=== PATIENT | male | born 1975 | race Caucasian/White ===

== ENCOUNTER 2021-04-28 14:16 | Emergency (ER) | payer OTHER ==
[2021-04-28] MEDS ORDERED: Lidocaine 1% 30 ML SDV INJECT ONE (15:32)
--- NOTE | 2021-04-28 15:46 | EDM.PDOC ---
ED HPI GENERAL MEDICAL PROBLEM - General Stated Complaint: L MIDDLE FINGER INJURY Time Seen by Provider: 04/28/21 15:35 Source of Information: Reports: Patient History Limitations: Reports: No Limitations - History of Present Illness INITIAL COMMENTS - FREE TEXT/NARRATIVE: Patient comes emergency department today with complaints of an injury to his left index finger while at work using a notch grinder. This patient whose tetanus immunization was 2 to 3 years ago was at work today using a wheel cutter that got away from him and cut his left pad of his index finger. This happened just prior to arrival. He denies any paresthesias. He denies any other injury. Denies any change in the functionality of his left hand or sensation. Left Middle Finger-Middle Pain Score (Numeric/FACES): 1 - Related Data Allergies Allergy/AdvReac Type Severity Reaction Status Date / Time No Known Allergies Allergy Verified 04/28/21 16:36 Home Meds: Home Meds . [No Known Home Meds] 04/28/21 [History] Review of Systems - Review of Systems Review Of Systems: Comprehensive ROS is negative, except as noted in HPI. ED EXAM, GENERAL - Physical Exam Exam: See Below Exam Limited By: No Limitations General Appearance: Alert, WD/WN, No Apparent Distress Respiratory/Chest: No Respiratory Distress Cardiovascular: Normal Peripheral Pulses Peripheral Pulses: 2+: Radial (L), Radial (R) Extremities: No: Normal Inspection (On the left hand just at the DIP crease on the pad surface there is a 2.5 cm deep laceration transversely across the DIP laceration. He is able to flex and extend at the DIP PIP and MCP joint appropriately. Rest of the hand is atraumatic. CMS is intact appropriately.) Neurological: Alert, Oriented, No Motor/Sensory Deficits Psychiatric: Normal Affect Skin Exam: Warm, Dry, Intact, Normal Color, No Rash ED TRAUMA EXTREMITY PROCEDURES - Laceration/Wound Repair Left Ventral Digit - 3rd (Middle) Lac/Wound Length In cm: 2.5 Appearance: Subcutaneous, Irregular, Mildly Contaminated Distal NVT: Neuro & Vascular Intact, No Tendon Injury Anesthetic Type: Digital Local Anesthesia - Lidocaine (Xylocaine): 1% Plain Skin Prep: Chlorhexidine (Hibiciens), Saline Saline Irrigation (cc's): 500 Exploration/Debridement/Repair: Wound Explored, In a Bloodless Field, Explored to Base, Foreign Material Removed (Small amount of hard black foreign material was removed with irrigation as well as manual removal with a forceps no other debris identified.) Closed With: Sutures Suture Size: 5-0 # of Sutures: 9 Suture Type: Nylon, Interrupted Sterile Dressing Applied: Nurse Tetanus Status Addressed: Yes Course - Vital Signs Last Recorded V/S: Last Vital Signs Temp 98.4 F 04/28/21 15:20 Pulse 73 04/28/21 15:20 Resp 16 04/28/21 15:20 BP 154/89 H 04/28/21 15:20 Pulse Ox 96 04/28/21 15:20 - Orders/Labs/Meds Meds: Medications Discontinued Medications Generic Name Dose Route Start Last Admin Trade Name Freq PRN Reason Stop Dose Admin Lidocaine HCl 30 ml 04/28/21 15:32 04/28/21 15:35 Lidocaine 1% 30 Ml Sdv INJECT 04/28/21 15:33 30 ml ONETIME ONE Administration - Radiology Interpretation Free Text/Narrative:: X-ray per radiology shows tiny age-indeterminate avulsion fractures of the palmar middle and distal third phalanx bases chronic healed fourth metacarpal fracture no dislocation or other osseous abnormality. These are most likely old as this is not the area of injury today and has had injury to this finger in the past. Departure - Departure Time of Disposition: 16:17 Disposition: Home, Self-Care 01 Clinical Impression: Laceration of finger of left hand Qualifiers: Encounter type: initial encounter Finger: middle finger Damage to nail status: without damage Foreign body presence: without foreign body Qualified Code(s): S61.213A - Laceration without foreign body of left middle finger without damage to nail, initial encounter - Discharge Information Instructions: Laceration Care, Adult, [id number] Referrals: PCP,None [Ordering Only Provider] - Forms: ED Department Discharge Additional Instructions: Cleanse the wound twice daily with soap and water. Bacitracin and bandage until healed. Watch for signs of infection. Sutures out in 10 days. Return to the ED if new or worsening symptoms. Follow up with PCP to have sutures removed in 10 days.
--- NOTE | 2021-04-28 16:12 | CR ---
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 COMPARISON: None. DISCUSSION: Tiny age-indeterminate avulsion fractures off the palmar middle and distal third phalanx bases. Chronic healed fourth metacarpal fracture. No dislocation or other osseous abnormality is identified. IMPRESSION: 1. Tiny age-indeterminate avulsion fractures are suggested off the palmar middle and distal third phalangeal bases. Shane Schmitt MD 04/28/21 [id number] Thank you for allowing us to participate in the care of your patient.
== END 2021-04-28 16:30 | disposition home or self-care (01) ==
LOC: VM.ED 14:16
DX: S61.213A Laceration without foreign body of left middle finger without damage to nail, initial encounter (principal); W26.8XXA Contact with other sharp object(s), not elsewhere classified, initial encounter; Y92.89 Other specified places as the place of occurrence of the external cause; Y99.0 Civilian activity done for income or pay
CPT/HCPCS: 12001; 73140-F2; 99283; 99283-25